=== PATIENT | female | born 1970 | race Caucasian/White ===

== ENCOUNTER 2017-04-15 18:10 | Emergency (ER) | payer OTHER ==
[2017-04-15 19:49] VITALS: BP 101/77
[2017-04-15] MEDS ORDERED: Sulfamethox/Trimethoprim DS 800/160* TAB PO ONE (21:33)
[2017-04-15] MEDS ORDERED: Phenazopyridine TAB* 100 MG PO ONE (21:34)
--- NOTE | 2017-04-15 22:40 | UC ---
Nima Jorge Benjamin, scribed for Serina Conner MD on 04/15/17 at 2139 . Complaint Female HPI - HPI Summary HPI Summary: 47yo female c/o increased urinary frequency and painful urination for 2 days. Pt describes the pain initially as 4/10 but now as 6/10. Pt reports frequent UTIs, about 3-4 times a year. Pt sees Dr. Eller for her UTIs but has not seen him in "awhile". Also reports mild low abdominal pain and aching left mid-upper back, which pt took advil for. Pt with low grade temp 100.2 noted at triage, had taken ibuprofen about one hour prior to triage, also took ibuprofen while waiting in , approx 9pm. for upper back discomfort. PMHx includes thyroid problems and . Pt's LMP was 2 months ago but she is on Seasonique control. Review of prior cultures at [facility] show no growth in 01/2017 and Kocuria bacteria in 2014. Pt is a humanities and languages professor at [employer] - History Of Current Complaint Chief Complaint: UCGU Stated Complaint: BURNING URINATION Time Seen by Provider: 04/15/17 21:23 Hx Obtained From: Patient Hx Last Menstrual Period: 2 months ago ?: No Onset/Duration: Sudden Onset, Lasting Days - 2 days, Still Present Timing: Constant Severity Initially: Mild - 4 Severity Currently: Moderate - 6 Pain Intensity: 6 Pain Scale Used: 0-10 Numeric Character: Burning Aggravating Factor(s): Urination Alleviating Factor(s): Nothing Associated Signs And Symptoms: Positive: Fever, Back Pain - Allergies/Home Medications Allergies/Adverse Reactions: Allergies Allergy/AdvReac Type Severity Reaction Status Date / Time No Known Allergies Allergy Verified 04/15/17 19:47 Home Medications: Home Medications Ciprofloxacin TAB* [Cipro 250 MG Tab*] 04/15/17 [History Confirmed 04/15/17] PMH/Surg Hx/FS Hx/Imm Hx Previously Healthy: No - frequent UTI's per pt GI/ History: Other Other GI/ History: frequent UTIs (3-4 times/year) - Surgical History Surgical History: Yes Surgery Procedure, Year, and Place: Thyroid, C-SECTIONS - Family History Known Family History: Negative: Cardiac Disease, Hypertension, Renal Disease - Social History Occupation: Employed Full-time - [employer] humanities and languages professor Lives: With Family Alcohol Use: None Substance Use Type: None Smoking Status (MU): Never Smoked Tobacco Review of Systems Constitutional: Chills, Fatigue, Other - temp 100.2 after ibuprofen in UC Skin: Negative Eyes: Negative ENT: Negative Respiratory: Negative Cardiovascular: Negative Gastrointestinal: Abdominal Pain - low Genitourinary: Dysuria - burning, Frequency - increased, Other - Left flank pain Motor: Negative Neurovascular: Negative Musculoskeletal: Negative Neurological: Negative Psychological: Negative All Other Systems Reviewed And Are Negative: Yes Physical Exam Triage Information Reviewed: Yes Appearance: Well-Nourished, Ill-Appearing, Pain Distress - moderate Vital Signs: Initial Vital Signs Temp 100.2 F 04/15/17 19:42 Pulse 86 04/15/17 19:42 Resp 18 04/15/17 19:42 BP 101/77 04/15/17 19:42 Pulse Ox 98 04/15/17 19:42 Vital Signs Reviewed: Yes Eyes: Positive: Conjunctiva Clear ENT: Positive: Hearing grossly normal. Negative: Muffled/hoarse voice Neck: Positive: Supple Respiratory: Positive: Lungs clear, Normal breath sounds, No respiratory distress Cardiovascular: Positive: RRR, No Murmur, Pulses Normal Abdomen Description: Positive: No Organomegaly, Soft, CVA Tenderness (L), Other : - mild diffuse lower abd pain, no rebound. Negative: Distended, Guarding, McBurney's Point Tenderness, Peritoneal Signs, Pulsatile Mass Bowel Sounds: Positive: Present Musculoskeletal: Positive: Strength Intact, ROM Intact Neurological: Positive: Alert, Muscle Tone Normal Psychological Exam: Normal Skin Exam: Normal Diagnostics - Laboratory Diagnostic Studies Completed/Ordered: UA: positive blood, nitrate, protein, and leukocytes. Negative pregancy test. Complaint Female Dx - Course Course Of Treatment: Reviewed medication lists and known allergies. UA: positive blood, nitrate, protein, and leukocytes. Negative pregancy test. 47yo female c/o UTI symptoms for 2 days. Symptoms include increased frequency and dysuria. Pt gets frequent UTIs, which pt sees Dr. Eller for. Pt has a temp of 100.2F and her urine was positive for blood, protein, nitrate, and leukocyte esterase. Also reports mild low abdominal pain. Pt is positive for left CVA tenderness. Pt grew Kocuria species in 2014. With low grade temp in the setting of recent ibuprofen and left flank pain and frequent UTI's will treat with Bactrim and will treat for 14 days to treat for pyelonephritis, and have advised pt that she needs definite follow up with Dr. Eller. Have chosen not to treat with Cipro due to black box warning, and fact that pt does not have allergies. Can adjust meds based on sensitivities. - Differential Dx/Diagnosis Differential Diagnosis/HQI/PQRI: Ureteral Stone, Urinary Tract Infection, Other - pyelonephritis Provider Diagnoses: pyelonephritis Discharge - Discharge Plan Condition: Stable Disposition: HOME Prescriptions: Phenazopyridine TAB* [Pyridium 100 mg TAB*] 100 mg PO TID #20 tab Sulfamethox/Trimethoprim DS* [Bactrim DS 800/160 TAB*] 1 tab PO BID #28 tab Patient Education Materials: Urinary Tract Infection in Women (ED), Kidney Infection (ED) Referrals: Naomie Almendarez MD [Primary Care Provider] - Additional Instructions: Return to urgent care if you have any new or worsening symptoms. The documentation as recorded by the Nima bhat Benjamin accurately reflects the service I personally performed and the decisions made by , Serina Conner MD.
== END 2017-04-15 21:47 | disposition home or self-care (01) ==
LOC: UCEAST 18:10
DX: N12 Tubulo-interstitial nephritis, not specified as acute or chronic (principal)
CPT/HCPCS: 81003; 84702; 87077; 87086; 87186; 99212; A9270-GY; G0463